=== PATIENT | female | born 2000 | race Caucasian/White ===

== ENCOUNTER 2024-08-11 12:26 | Emergency (ER) | payer MEDICAID ==
[~2024-08-11] VITALS: Ht 154.9 cm; Wt 54.0 kg
[2024-08-11 12:29] VITALS: BP 119/69; PULSE 78; RESP 16; TEMP 98.2; O2SAT 100
[2024-08-11] MEDS: HYDROCODONE/ACETAMINOPHEN 5/325MG TABLET PO STA (14:43)
[2024-08-11] MEDS ORDERED: NAPR-681 PO (16:41)
[2024-08-11] MEDS ORDERED: OFLO5DRO4 LEFT EAR (16:41)
[2024-08-12] MEDS ORDERED: IBUP-1653 PO (12:01)
== END 2024-08-11 17:13 | disposition home or self-care (01) ==
LOC: ER 12:37
DX: S00.83XA Contusion of other part of head, initial encounter (principal); S09.22XA Traumatic rupture of left ear drum, initial encounter; Y04.0XXA Assault by unarmed brawl or fight, initial encounter; Y93.89 Activity, other specified; Y92.89 Other specified places as the place of occurrence of the external cause; Y99.8 Other external cause status
CPT/HCPCS: 70486; 73090; 99284

== ENCOUNTER 2024-08-12 11:41 | Emergency (ER) | payer MEDICAID ==
[~2024-08-12] VITALS: Ht 157.5 cm; Wt 54.4 kg
[~2024-08-12 11:41] MED LIST: NAPR-681 PO; OFLO5DRO4 LEFT EAR
[2024-08-12 11:47] VITALS: O2SAT 100
[2024-08-12] MEDS ORDERED: IBUP-1653 PO (12:01)
[2024-08-12 12:34] VITALS: BP 117/69; PULSE 78; RESP 16; TEMP 36.66960; O2SAT 100
== END 2024-08-12 12:35 | disposition home or self-care (01) ==
LOC: ER 11:41
DX: H72.92 Unspecified perforation of tympanic membrane, left ear (principal); J45.909 Unspecified asthma, uncomplicated
CPT/HCPCS: 99282

== ENCOUNTER 2024-08-28 14:11 | Emergency (ER) | payer MEDICAID ==
[~2024-08-28] VITALS: Ht 160 cm; Wt 70.0 kg
[~2024-08-28 14:11] MED LIST changes: +IBUP-1653 PO
[2024-08-28 14:15] VITALS: BP 102/61; TEMP 98.1
[2024-08-28 14:40] VITALS: PULSE 74; RESP 20; O2SAT 98
[2024-08-28] MEDS: IPRATROPIUM/ALBUTEROL 0.5-3(2.5)MG/3ML NEB HHN ONE (14:53)
[2024-08-28] MEDS: TETANUS, DIPHTHERIA, PERTUSSIS VAC/PF 0.5ML (>10YR OLD) IM ONE (15:07)
[2024-08-28] MEDS ORDERED: AMOX1TAB16 MT (16:36)
[2024-08-28] MEDS ORDERED: ALBU18HF2 IH (16:36)
== END 2024-08-28 15:05 | disposition home or self-care (01) ==
LOC: ER 14:11
DX: S70.312A Abrasion, left thigh, initial encounter (principal); J45.901 Unspecified asthma with (acute) exacerbation; Z59.00 Homelessness unspecified; Z98.890 Other specified postprocedural states; Z79.899 Other long term (current) drug therapy; Y04.1XXA Assault by human bite, initial encounter; Y93.89 Activity, other specified; Y92.89 Other specified places as the place of occurrence of the external cause; Y99.8 Other external cause status
CPT/HCPCS: 70450; 90715; 94640; 90471; 99285; Z7610 ×3